=== PATIENT | female | born 1985 | race Caucasian/White ===

== ENCOUNTER 2017-07-15 05:38 | Day surgery (SDC) | payer OTHER ==
[~2017-07-15] VITALS: Ht 165.1 cm; Wt 68.2 kg
[~2017-07-15 05:38] MED LIST: DESO1TAB35 PO
[2017-07-15] MEDS ORDERED: LACTATED RINGERS 1,000 ML IV SCH (06:21)
[2017-07-15 06:22] VITALS: BP 120/78
[2017-07-15] MEDS ORDERED: LIDOCAINE 1%, 2ML SQ PRN (06:30)
[2017-07-15 06:34] LABS: HCG UR LOT HCG706132
[2017-07-15 06:37] LABS: HCG UR OBC PASS
[2017-07-15] MEDS ORDERED: BUPIVACAINE/PF 0.25% ONE (07:03)
[2017-07-15] MEDS ORDERED: EPINEPHRINE 1 MG/ML, 1ML ONE (07:03)
[2017-07-15] MEDS ORDERED: NEOSPORIN OINT, 15GM ONE (07:05)
[2017-07-15] MEDS ORDERED: MIDAZOLAM 1 MG/ML, 2ML ONE (07:12)
[2017-07-15] MEDS ORDERED: FENTANYL PF 250 MCG/5ML ONE (07:12)
[2017-07-15] MEDS ORDERED: SUGAMMADEX 200 MG/2 ML IVPush ONE ×2 (07:35→08:14)
[2017-07-15] MEDS ORDERED: BUPIVACAINE/PF-EPI 0.25% 1:200K INFIL ONE (08:09)
[2017-07-15] MEDS ORDERED: NEOSPORIN OINT, 15GM TP ONE (08:15)
[2017-07-15] MEDS ORDERED: HYDROmorphone 1 MG/ML, 1ML IV PRN (08:30)
[2017-07-15] MEDS ORDERED: FENTANYL PF 100 MCG/2ML IV PRN (08:30)
[2017-07-15] MEDS ORDERED: LORazepam 2 MG/ML, 1ML IVPush PRN (08:30)
[2017-07-15] MEDS ORDERED: PROPOFOL 10 MG/ML, 20ML ONE (08:30)
[2017-07-15] MEDS ORDERED: GLYCOPYRROLATE 0.2MG/1ML, 5ML ONE (08:30)
[2017-07-15] MEDS ORDERED: METOPROLOL 1 MG/ML, 5ML IV PRN (08:30)
[2017-07-15] MEDS ORDERED: ROCURONIUM 10 MG/ML,10ML ONE (08:30)
[2017-07-15] MEDS ORDERED: MEPERIDINE/PF 25MG/0.5ML IVPush PRN (08:30)
[2017-07-15] MEDS ORDERED: hydrALAzine 20 MG/ML, 1ML IV PRN (08:30)
[2017-07-15] MEDS ORDERED: ONDANSETRON 2MG/ML, 2ML ONE (08:30)
[2017-07-15] MEDS ORDERED: OXYcodone 5 MG/5 ML ORAL.SOL UDC PO PRN (08:30)
[2017-07-15] MEDS ORDERED: CEFAZOLIN 1,000 MG ONE (08:30)
[2017-07-15] MEDS ORDERED: ACETAMINOPHEN 325 MG TABLET PO PRN (08:30)
[2017-07-15] MEDS ORDERED: NEOSTIGMINE 1 MG/ML, 10ML ONE (08:30)
[2017-07-15] MEDS ORDERED: PROMETHAZINE 25 MG/ML, 1ML IV PRN (08:30)
[2017-07-15] MEDS ORDERED: ALBUTEROL SULFATE 2.5 MG/3 ML NPPB PRN (08:30)
[2017-07-15] MEDS ORDERED: DEXAMETHASONE 4 MG/ML, 1ML ONE (08:30)
[2017-07-15] MEDS ORDERED: SUCCINYLCHOLINE 20 MG/ML, 10ML ONE (08:30)
[2017-07-15] MEDS ORDERED: MEPERIDINE/PF 50 MG/ML ONE (08:44)
[2017-07-15] MEDS ORDERED: ACETAMINOPHEN 325 MG TABLET ONE (09:02)
== END 2017-07-15 11:15 ==
LOC: OUT 05:38
PROVIDERS: ATTEND Obstetrics & Gynecology Maternal & Fetal Medicine
DX: Z30.2 Encounter for sterilization (principal)
CPT/HCPCS: 58670; 81025; 88302; J0171; J0330; J0690; J1100; J2175; J2250; J2405; J2704; J3010; J3490; J7120; J2710